=== PATIENT | female | born 1955 | race Caucasian/White ===

== ENCOUNTER 2016-05-17 16:12 | Emergency (ER) | payer OTHER ==
[~2016-05-17] VITALS: Ht 160 cm; Wt 76.2 kg
[~2016-05-17 16:12] MED LIST: AMLO5TAB2 PO; CHOL400C7; HYDR-2035; LEVE100012 PO; LEVO25TA49; LOSA25TA8; TOPI100T68 PO; VALS160T51 PO
[2016-05-17] MEDS ORDERED: IPRATROPIUM BROM 0.5 MG/2.5ML INH SOL NEB ONE (16:45)
[2016-05-17] MEDS ORDERED: ALBUTEROL SULF 2.5 MG/0.5ML(0.5%) NEB SOLN NEB ONE (16:45)
[2016-05-17] MEDS ORDERED: SODIUM CHLORIDE 0.9% 1,000 ML IV ONE (17:41)
[2016-05-17 17:43] LABS: Basophils # (auto) 0.1 uL; Basophils % (auto) 0.4 % (0.0-2.0); DEFINITIVE VIEW TRANSMISSION; Eosinophils # (auto) 0.1 uL; Eosinophils % (auto) 0.8 % (0.0-7.0); Hematocrit 32.9 % (36.0-46.0); Hemoglobin 10.5 g/dL (12.2-16.2); Lymphocytes # (auto) 3.9 uL; Lymphocytes % (auto) 25.8 % (10.0-50.0); Mean Corpuscular Hgb Conc. 31.9 g/dL (32.0-36.0); Mean Corpuscular Volume 84.6 fL (80.0-100.0); Mean Platelet Volume 8.8 fL (7.4-10.4); Monocytes # (auto) 0.7 uL; Monocytes % (auto) 4.3 % (0.0-12.0); Neutrophils # (auto) 10.3 uL; Neutrophils % (auto) 68.7 % (37.0-80.0); Platelet Count (auto) 216 10^3/uL (140-450); Red Cell Distribution Width 15.9 % (11.6-16.0)
[2016-05-17 17:45] LABS: Albumin 3.7 g/dL (3.4-5.0); Anion Gap 11 (5-15); Aspartate Aminotransferase 17 U/L (15-37); BUN/Creatinine Ratio 12.9; Blood Urea Nitrogen 33 mg/dL (7-18); Calcium 8.6 mg/dL (8.5-10.1); Carbon Dioxide 25 mmol/L (21-32); Chloride 100 mmol/L (98-107); GFR African American 25 mL/min; GFR Non-African American 20 mL/min; Glucose 174 mg/dL (74-106); Magnesium 1.9 mg/dL (1.6-2.6); Sodium 136 mmol/L (136-145)
[2016-05-17] MEDS ORDERED: MORPHINE SULFATE 4 MG/ML SYRG IV ONE (17:45)
[2016-05-17] MEDS ORDERED: ONDANSETRON HCL 4 MG/2 ML VIAL IV ONE (17:45)
[2016-05-17] MEDS ORDERED: NITROGLYCERIN 0.2MG/HR TOPICAL PATCH TD ONE (17:45)
[2016-05-17 17:49] LABS: Alkaline Phosphatase 79 U/L (45-117); Bilirubin, Total 0.2 mg/dL (0.2-1.0)
[2016-05-17 18:05] LABS: INR 1.04 (0.9-1.15); Partial Thromboplastin Time 24.7 sec (22.64-33.71); Prothrombin Time 10.7 sec (9.37-12.3)
[2016-05-17 18:14] LABS: B-Type Natriuretic Peptide 22.83 pg/mL (0-100)
[2016-05-17 18:15] LABS: Temperature: 22.8 C (20.0-25.0)
[2016-05-17] MEDS ORDERED: KETOROLAC TROMETH 30 MG/ML 1ML VIAL IV ONE (18:15)
[2016-05-17] MEDS ORDERED: cefTRIAXone 1GM/50ML D5W 50 ML IV ONE (19:30)
[2016-05-17] MEDS ORDERED: POTASSIUM CHL 20 Meq TABLET PO ONE (19:30)
[2016-05-17] MEDS ORDERED: LEVOTHYROXINE SODIUM 25 MCG TAB PO ONE (19:30)
[2016-05-17] MEDS ORDERED: LORazepam 2MG/ML-1ML VIAL IV ONE (20:00)
[2016-05-17] MEDS ORDERED: HYDROcodone-ACET 10/325MG TAB PO ONE (20:00)
[2016-05-17] MEDS: AZITHROMYCIN 500MG/D5W 250ML 250 ML IV SCH (20:39)
[2016-05-18 02:33] LABS: Urine Bilirubin Negative (Negative); Urine Blood TRACE /uL (Negative); Urine Color Yellow (Yellow); Urine Glucose Normal (Normal); Urine Ketone Negative (Negative); Urine Nitrite Negative (Negative); Urine RBC 5 /hpf (0 - 4); Urine Squamous Epithelial Cell FEW /hpf (<5); Urine Urobilinogen Normal (Negative); Urine pH 5.5 (5.0-8.0)
[2016-05-18] MEDS ORDERED: METH750T3 PO (09:55)
[2016-05-18] MEDS ORDERED: NITR0.4S29 SL (09:55)
[2016-05-18] MEDS ORDERED: ATOR20TA50 PO (09:55)
[2016-05-18] MEDS ORDERED: GAB300C PO (09:55)
[2016-05-18] MEDS ORDERED: METF-312 PO (09:55)
[2016-05-18] MEDS ORDERED: HCTZ25T PO (09:55)
[2016-05-18] MEDS ORDERED: [UNRECOGNIZED DRUG - CODE] TOP (09:55)
[2016-05-18] MEDS ORDERED: CLON05T PO (09:55)
[2016-05-18] MEDS ORDERED: MIRT30TA PO (09:55)
[2016-05-18] MEDS ORDERED: TRAZ100T2 PO (09:55)
[2016-05-18] MEDS: AZITHROMYCIN 500MG/D5W 250ML 250 ML IV SCH (10:25)
[2016-05-18 10:46] VITALS: BP 133/78
[2016-05-18] MEDS ORDERED: NALBUPHINE HCL 10 MG/1ml INJECTION IV ONE (11:00)
== END 2016-05-18 12:06 | disposition home or self-care (01) ==
LOC: ER 16:15
DX: R07.9 Chest pain, unspecified (principal); R68.84 Jaw pain; J18.1 Lobar pneumonia, unspecified organism; J18.9 Pneumonia, unspecified organism; E87.6 Hypokalemia; E86.0 Dehydration; E11.22 Type 2 diabetes mellitus with diabetic chronic kidney disease; I12.9 Hypertensive chronic kidney disease with stage 1 through stage 4 chronic kidney disease, or unspecified chronic kidney disease; N18.4 Chronic kidney disease, stage 4 (severe); Z87.891 Personal history of nicotine dependence; E06.3 Autoimmune thyroiditis; Z79.899 Other long term (current) drug therapy; Z88.8 Allergy status to other drugs, medicaments and biological substances
CPT/HCPCS: 36415; 71020; 80053; 81001; 82962; 83735; 83880; 84443; 84484; 85025; 85379; 85610; 85730; 87040; 93005; 94640; 96361; 96365; 96366; 96368; 96375; 99291; J0456; J0696; J2060; J2405; J7030; J7040; 94761